=== PATIENT | female | born 1985 | race Caucasian/White ===

== ENCOUNTER 2017-03-03 13:56 | Emergency (ER) | payer OTHER ==
[~2017-03-03] VITALS: Ht 167.6 cm; Wt 73.0 kg
[2017-03-03 14:40] LABS: HEMATOCRIT 39.6 % (37.0-47.0); HEMOGLOBIN 13.1 g/dl (12.0-16.0); IMMATURE GRANULOCYTES 0.4 % (0.0-1.0); MEAN CELL VOLUME 97.5 fL CALC (80.0-100.0); MEAN CORPUSCULAR HGB 32.3 pG CALC (26.0-32.0); MEAN CORPUSCULAR HGB CONC 33.1 g/L CALC (32.0-36.0); NEUT# 12.31 thou/uL (2.00-7.15); RED BLOOD COUNT 4.06 mill/uL (4.20-5.60); RED CELL DISTRI WIDTH 12.7 % (11.5-15.5)
[2017-03-03 14:45] LABS: URINE BILIRUBIN - DIPSTICK NEGATIVE (NEGATIVE); URINE BLOOD DIPSTICK MODERATE (NEGATIVE); URINE COLOR YELLOW; URINE GLUCOSE - DIPSTICK NEGATIVE (NEGATIVE); URINE KETONE NEGATIVE (NEGATIVE); URINE PROTEIN - DIPSTICK 30 mg/dL (NEG-TRACE); URINE SPECIFIC GRAVITY <=1.005; URINE UROBILINOGEN - DIPSTICK 0.2 E.U./dL (0.2)
[2017-03-03 14:47] LABS: URINE CLARITY CLOUDY; URINE LEUK ESTERASE MODERATE (NEGATIVE); URINE NITRITE - DIPSTICK POSITIVE (Negative)
[2017-03-03 14:53] LABS: URINE BACTERIA MODERATE hpf; URINE RBC 25-50 RBC/hpf (0-5); URINE SQUAMOUS EPITHELIAL CELL FEW EPI/hpf (0-FEW); URINE WBC 20-50 WBC/hpf (0-5)
[2017-03-03] MEDS ORDERED: ZOLOFT50 MG PO (14:56)
[2017-03-03] MEDS ORDERED: SEROQUEL XR150 MG PO (14:57)
[2017-03-03 14:58] LABS: ALBUMIN 4.1 g/dL (3.2-5.0); ALKALINE PHOSPHATASE 52 u/l (38-126); AMYLASE 70 u/l (30-110); ANION GAP 13 (6-22 (CALC)); BILIRUBIN, TOTAL 0.4 mg/dL (0.0-1.4); BUN 11 mg/dL (7-17); BUN/CREATININE RATIO 14 (12-20 (CALC)); CALCIUM 9.7 mg/dL (8.4-10.2); CARBON DIOXIDE 24 mmol/l (22-30); CHLORIDE 103 mmol/l (95-108); CREATININE 0.7 mg/dL (0.5-1.0); GFR > 60 ML/MIN (>=60 (CALC)); GFR FOR AFR.AMER. > 60 ML/MIN (>=60 (CALC)); GLUCOSE 92 mg/dL (65-105); LIPASE 137 u/l (23-300); POTASSIUM 4.3 mmol/l (3.5-5.1); SGOT/AST 28 u/l (14-36); SGPT/ALT 32 u/l (9-52); SODIUM 135 mmol/l (137-146); TOTAL PROTEIN 7.2 g/dL (6.3-8.2)
[2017-03-03] MEDS ORDERED: ULTRAM50 M1 PO (16:02)
[2017-03-03] MEDS ORDERED: BACTRIM DS1 TAB PO (16:02)
[2017-03-03] MEDS ORDERED: ZOFRAN ODT4 MG PO (16:02)
[2017-03-03 16:21] VITALS: BP 134/89
== END 2017-03-03 16:21 | disposition home or self-care (01) | DRG 690 ==
LOC: ED 13:56
PROVIDERS: Emergency Medicine
DX: N39.0 Urinary tract infection, site not specified (principal); B96.20 Unspecified Escherichia coli [E. coli] as the cause of diseases classified elsewhere; R10.31 Right lower quadrant pain; R10.11 Right upper quadrant pain
CPT/HCPCS: Q9967

== ENCOUNTER 2017-08-29 12:06 | Emergency (ER) | payer OTHER ==
[~2017-08-29] VITALS: Ht 167.6 cm; Wt 80.0 kg
[~2017-08-29 12:06] MED LIST: BACTRIM DS1 TAB PO; SEROQUEL XR150 MG PO; ULTRAM50 M1 PO; ZOFRAN ODT4 MG PO; ZOLOFT50 MG PO
[2017-08-29] MEDS ORDERED: KEFLEX250 MG PO (13:02)
== END 2017-08-29 13:22 | disposition home or self-care (01) | DRG 605 ==
LOC: ED 12:06
DX: S91.112A Laceration without foreign body of left great toe without damage to nail, initial encounter (principal); W26.8XXA Contact with other sharp object(s), not elsewhere classified, initial encounter; Y93.9 Activity, unspecified; Y92.9 Unspecified place or not applicable

== ENCOUNTER 2017-09-10 12:59 | Emergency (ER) | payer OTHER ==
[~2017-09-10] VITALS: Ht 167.6 cm; Wt 78.6 kg
[~2017-09-10 12:59] MED LIST changes: +KEFLEX250 MG PO
[2017-09-10] MEDS ORDERED: CARBAMAZEPIN200 MG PO (13:10)
[2017-09-10] MEDS ORDERED: HYZAAR1 TA1 PO (13:11)
[2017-09-10] MEDS ORDERED: [UNRECOGNIZED DRUG - OTHER] PO (13:12)
[2017-09-10 14:18] LABS: URINE BILIRUBIN - DIPSTICK NEGATIVE (NEGATIVE); URINE BLOOD DIPSTICK NEGATIVE (NEGATIVE); URINE COLOR YELLOW; URINE GLUCOSE - DIPSTICK NEGATIVE (NEGATIVE); URINE KETONE NEGATIVE (NEGATIVE); URINE LEUK ESTERASE NEGATIVE (NEGATIVE); URINE NITRITE - DIPSTICK NEGATIVE (Negative); URINE PROTEIN - DIPSTICK TRACE mg/dL (NEG-TRACE); URINE UROBILINOGEN - DIPSTICK 0.2 E.U./dL (0.2)
[2017-09-10 14:19] LABS: HEMATOCRIT 42.3 % (37.0-47.0); HEMOGLOBIN 14.4 g/dl (12.0-16.0); IMMATURE GRANULOCYTES 1.6 % (0.0-1.0); MEAN CELL VOLUME 96.6 fL CALC (80.0-100.0); MEAN CORPUSCULAR HGB 32.9 pG CALC (26.0-32.0); NEUT# 18.64 thou/uL (2.00-7.15); RED BLOOD COUNT 4.38 mill/uL (4.20-5.60); RED CELL DISTRI WIDTH 12.5 % (11.5-15.5)
[2017-09-10 14:21] LABS: URINE CLARITY SL CLOUDY
[2017-09-10 15:41] LABS: D-DIMER 2.01 mg/L (0.19-0.60); PROTHROMBIN TIME 10.3 SECONDS (9.0-12.5)
[2017-09-10 15:44] LABS: ALBUMIN 3.8 g/dL (3.2-5.0); ALKALINE PHOSPHATASE 67 u/l (38-126); AMYLASE 49 u/l (30-110); ANION GAP 14 (6-22 (CALC)); BILIRUBIN, TOTAL 0.7 mg/dL (0.0-1.4); BUN 10 mg/dL (7-17); BUN/CREATININE RATIO 10 (12-20 (CALC)); CALCIUM 9.2 mg/dL (8.4-10.2); CARBON DIOXIDE 24 mmol/l (22-30); CHLORIDE 102 mmol/l (95-108); CREATININE 1.1 mg/dL (0.5-1.0); GFR 58 ML/MIN (>=60 (CALC)); GFR FOR AFR.AMER. > 60 ML/MIN (>=60 (CALC)); GLUCOSE 112 mg/dL (65-105); LIPASE 69 u/l (23-300); POTASSIUM 3.9 mmol/l (3.5-5.1); SGOT/AST 23 u/l (14-36); SGPT/ALT 64 u/l (9-52); SODIUM 137 mmol/l (137-146); TOTAL PROTEIN 6.7 g/dL (6.3-8.2)
[2017-09-10 15:52] LABS: MYOGLOBIN 35 ng/mL (0 - 62)
[2017-09-10] MEDS ORDERED: ZITHROMAX250 MG PO (17:53)
[2017-09-10 18:48] VITALS: BP 120/80
== END 2017-09-10 18:51 | disposition left against medical advice (07) | DRG 816 ==
LOC: ED 12:59
PROVIDERS: Emergency Medicine
DX: R59.0 Localized enlarged lymph nodes (principal); F41.9 Anxiety disorder, unspecified; Z72.0 Tobacco use; R00.0 Tachycardia, unspecified; R07.9 Chest pain, unspecified
CPT/HCPCS: Q9967

== ENCOUNTER 2017-10-23 14:46 | Emergency (ER) | payer OTHER ==
[~2017-10-23] VITALS: Ht 167.6 cm; Wt 66.0 kg
[~2017-10-23 14:46] MED LIST changes: +CARBAMAZEPIN200 MG PO; +HYZAAR1 TA1 PO; +ZITHROMAX250 MG PO; +[UNRECOGNIZED DRUG - OTHER] PO
[2017-10-23] MEDS ORDERED: TOPAMAX50 MG PO (15:03)
[2017-10-23] MEDS ORDERED: DOXYCYCL HYC100 MG PO (15:03)
[2017-10-23] MEDS ORDERED: PRAVASTATIN SOD20 MG PO (15:03)
[2017-10-23] MEDS ORDERED: HYZAAR1 TA1 PO (15:04)
[2017-10-23 15:29] LABS: HEMATOCRIT 42.9 % (37.0-47.0); HEMOGLOBIN 14.7 g/dl (12.0-16.0); IMMATURE GRANULOCYTES 0.4 % (0.0-1.0); MEAN CELL VOLUME 94.7 fL CALC (80.0-100.0); MEAN CORPUSCULAR HGB 32.5 pG CALC (26.0-32.0); MEAN CORPUSCULAR HGB CONC 34.3 g/L CALC (32.0-36.0); NEUT# 7.77 thou/uL (2.00-7.15); RED BLOOD COUNT 4.53 mill/uL (4.20-5.60); RED CELL DISTRI WIDTH 11.8 % (11.5-15.5)
[2017-10-23 15:45] LABS: ALKALINE PHOSPHATASE 52 u/l (38-126); AMYLASE 91 u/l (30-110); ANION GAP 19 (6-22 (CALC)); BILIRUBIN, TOTAL 0.4 mg/dL (0.0-1.4); BUN 19 mg/dL (7-17); BUN/CREATININE RATIO 19 (12-20 (CALC)); CALCIUM 10.5 mg/dL (8.4-10.2); CARBON DIOXIDE 19 mmol/l (22-30); CHLORIDE 107 mmol/l (95-108); GFR > 60 ML/MIN (>=60 (CALC)); GFR FOR AFR.AMER. > 60 ML/MIN (>=60 (CALC)); GLUCOSE 95 mg/dL (65-105); LIPASE 182 u/l (23-300); POTASSIUM 3.3 mmol/l (3.5-5.1); SGOT/AST 24 u/l (14-36); SGPT/ALT 30 u/l (9-52); SODIUM 142 mmol/l (137-146)
[2017-10-23 15:57] LABS: MYOGLOBIN 24 ng/mL (0 - 62)
[2017-10-23 16:40] VITALS: BP 104/69
== END 2017-10-23 16:40 | disposition home or self-care (01) | DRG 312 ==
LOC: ED 14:46
PROVIDERS: Emergency Medicine
DX: R55 Syncope and collapse (principal); E78.00 Pure hypercholesterolemia, unspecified; F17.210 Nicotine dependence, cigarettes, uncomplicated; Y92.512 Supermarket, store or market as the place of occurrence of the external cause